=== PATIENT | female | born 1985 | race Hispanic/Latino ===

== ENCOUNTER 2021-07-25 19:54 | Outpatient (CLI) | payer SELFPAY | END 2021-07-25 19:55 | disposition home or self-care (01) | LOC: MADLAB 19:54 | PROVIDERS: ATTEND Family Medicine | DX: Z01.419 Encounter for gynecological examination (general) (routine) without abnormal findings (principal); N89.8 Other specified noninflammatory disorders of vagina | CPT/HCPCS: 87480; 87510; 87624; 87660; 88175 ==

== ENCOUNTER 2023-01-06 16:18 | Outpatient (CLI) | payer OTHER | END 2023-01-06 16:19 | disposition home or self-care (01) | LOC: MADRAD 16:18 | PROVIDERS: ATTEND Family Medicine | DX: M25.561 Pain in right knee (principal); W18.30XA Fall on same level, unspecified, initial encounter ==